=== PATIENT | female | born 1950 | race Asian ===

== ENCOUNTER 2018-07-16 10:22 | Emergency (ER) | END 2018-07-16 12:10 | disposition home or self-care (01) ==

== ENCOUNTER 2018-07-16 21:26 | Emergency (ER) | END 2018-07-17 02:16 | disposition home or self-care (01) ==

== ENCOUNTER 2018-07-30 21:13 | Emergency (ER) | END 2018-07-31 02:20 | disposition home or self-care (01) ==

== ENCOUNTER 2018-08-26 17:41 | Emergency (ER) | END 2018-08-27 02:45 | disposition home or self-care (01) ==

== ENCOUNTER 2019-03-20 05:15 | Emergency (ER) | payer OTHER ==
[~2019-03-20] VITALS: Ht 165.1 cm; Wt 82.0 kg
[~2019-03-20 05:15] MED LIST: ASPI-817 PO; ATOR20TA38 PO; GABA100C14 PO; HYDR25TA6 PO; KEN1O TOP; LOSA100T15 PO; MECL-77 PO; METF-849 PO
[2019-03-20 05:17] VITALS: Ht 165.1 cm; Wt 82.0 kg
[2019-03-20] MEDS ORDERED: ONDANSETRON 4 MG INJ IV STA (06:02)
[2019-03-20] MEDS ORDERED: NICARDipine HCL 30 MG CAPSULE PO ONE (06:30)
[2019-03-20] MEDS ORDERED: MECLIZINE 12.5 MG TAB PO ONE (06:30)
--- NOTE | 2019-03-20 08:06 | ERD ---
ER Documentation Chief Complaint Chief Complaint R889. DIZZINESS X 1 DAY. FROM HOME. HPI This is a 68-year-old female with a known history of epb-rofgomu-iabeujzel diabetes mellitus and hypertension. The patient presents to the emergency department complaining of a sudden onset of dizziness that occurred yesterday evening roughly 12 hours prior to arrival. The patient indicates that she describes the dizziness as a sensation as though the room is spinning around her. She states that she is felt nauseous but has not experienced any emesis. She complains of a mild bandlike headache. She had no fevers or shaking or chills. She denies any abdominal pain. She denies any neck pain. She indicates that in August 2018 she had similar symptoms and was diagnosed with vertigo. She was given a prescription of Antivert which improved her symptoms but she stated she ran out of this and therefore did not take any medication prior to arrival. She has no polyuria no polydipsia. No shortness of breath at rest or exertion. No recent travel. No changes in vision. No chest pain. ROS All systems reviewed and are negative except as per history of present illness. Medications Home Meds Active Scripts Meclizine Hcl* (Meclizine Hcl*) 25 Mg Tablet, 25 MG PO Q8H PRN for DIZZINESS, #20 TAB Prov:HOLLY KNOX MD 08/27/18 Reported Medications Aspirin* (Aspirin* EC) 81 Mg Tablet.dr, 81 MG PO DAILY, TAB 07/30/18 Hydrochlorothiazide* (Hydrochlorothiazide*) 25 Mg Tab, 25 MG PO DAILY, #30 TAB 07/30/18 Atorvastatin Calcium* (Atorvastatin Calcium*) 20 Mg Tablet, 20 MG PO QHS, #30 TAB 07/30/18 Losartan Potassium* (Losartan Potassium*) 100 Mg Tablet, 100 MG PO DAILY, TAB 07/30/18 Triamcinolone Acetonide* (Kenalog*) 0.1%-15GM Oint, 1 APPLIC TOP BID, #1 EA 07/30/18 Metformin* (Glucophage*) 500 Mg Tab, 500 MG PO WITH BREAKFAST DINNE, #30 TAB 07/30/18 Gabapentin* (Gabapentin*) 100 Mg Capsule, 100 MG PO TID, #90 CAP 07/30/18 Allergies Allergies: Coded Allergies: No Known Allergy (Unverified , 11/7/18) PMhx/Soc History of Surgery: No Anesthesia Reaction: No Hx Neurological Disorder: No Hx Respiratory Disorders: No Hx Cardiac Disorders: Yes (HTN, High Cholesterol) Hx Psychiatric Problems: No Hx Miscellaneous Medical Probl: No Hx Alcohol Use: No Hx Substance Use: No Hx Tobacco Use: No Smoking Status: Never smoker Physical Exam Vitals Vital Signs Date Temp Pulse Resp B/P (MAP) Pulse Ox O2 O2 Flow FiO2 Time Delivery Rate 03/20/19 67 20 172/75 98 Room Air 06:17 (107) 03/20/19 98.6 77 18 169/93 98 05:17 (118) Physical Exam Constitutional:Well-developed. Well-nourished. HEENT:Normocephalic. Atraumatic.Pupils were equal round reactive to light. Moist mucous membranes.No tonsillar exudates. Neck: No nuchal rigidity. No lymphadenopathy. No posterior cervical spine tenderness or step-offs. Respiratory: Not using accessory muscles of respiration.Lungs were clear to auscultation bilaterally. No rhonchi. No rales. No wheezing. Cardiovascular: Regular rate regular rhythm.No murmurs. No rubs were appreciated.S1, S2 normal. Distal pulses are palpable 2+ bilaterally. GI: Abdomen was soft. Nontender. Non Distended. No pulsatile abdominal masses or bruits. No rebound. No guarding. Bowel sounds were present and normal. Muscle skeletal: Full range of motion of both the upper and lower extremities bilaterally.Normal muscle tone.No assymetrical calf tenderness or swelling. Skin: No petechia, no purpura. No lesions on the palms or the soles of the feet. No maculopapular rash. NEURO: Patient was alert, awake, orientated x3.No facial droop. Gait observed and normal with no ataxia.Speech had regular rate and rhythm. No focal neurological deficits. Peripheral fatigable nystagmus. Result Diagram: 03/20/1944 03/20/19543 Results 24 hrs Laboratory Tests Test 03/20/19 05:20 03/20/19 05:44 Bedside Glucose 100 mg/dL White Blood Count 7.1 10^3/ul Red Blood Count 4.06 10^6/ul Hemoglobin 12.0 g/dl Hematocrit 36.4 % Mean Corpuscular Volume 89.7 fl Mean Corpuscular Hemoglobin 29.6 pg Mean Corpuscular Hemoglobin Concent 33.0 g/dl Red Cell Distribution Width 13.6 % Platelet Count 265 10^3/UL Mean Platelet Volume 9.4 fl Immature Granulocytes % 0.300 % Neutrophils % 49.4 % Lymphocytes % 40.1 % Monocytes % 7.5 % Eosinophils % 2.1 % Basophils % 0.6 % Nucleated Red Blood Cells % 0.0 /100WBC Immature Granulocytes # 0.020 10^3/ul Neutrophils # 3.5 10^3/ul Lymphocytes # 2.8 10^3/ul Monocytes # 0.5 10^3/ul Eosinophils # 0.2 10^3/ul Basophils # 0.0 10^3/ul Nucleated Red Blood Cells # 0.0 10^3/ul Sodium Level 143 mmol/L Potassium Level 4.1 mmol/L Chloride Level 106 mmol/L Carbon Dioxide Level 28 mmol/L Anion Gap 9 Blood Urea Nitrogen 26 mg/dl Creatinine 1.25 mg/dl Est Glomerular Filtrat Rate mL/min 43 mL/min Glucose Level 97 mg/dl Calcium Level 9.4 mg/dl Troponin I < 0.012 ng/ml Current Medications Medications Dose Sig/Fadia Start Time Status Last (Trade) Ordered Route PRN Stop Time Admin Dose Reason Admin Meclizine 25 mg ONCE ONCE 03/20/19 DC 03/20/19 HCl PO 06:30 06:12 (Antivert) 03/20/19 06:31 Ondansetron 4 mg ONCE STAT 03/20/19 DC 03/20/19 HCl (Zofran IV 06:02 06:12 Inj) 03/20/19 06:05 Nicardipine 30 mg ONCE ONCE 03/20/19 DC 03/20/19 HCl PO 06:30 06:12 (Cardene) 03/20/19 06:31 Procedures/[facility] This patient was seen and evaluated by myself. The patient presented to the emergency department complaining of dizziness. My differential diagnosis included but was not limited to hypovolemia, myocardial infarction, pulmonary embolism, hypoglycemia, hypoxia, anemia, vasovagal episode, hypothyroidism, anxiety, peripheral or central vertigo. The patient was placed on a special procedures tech, continuous pulse oximetry and IV access established by nursing staff. Patient is given a liter bolus of normal saline. She was given Zofran for nausea. She was also given Antivert. Her symptoms had significantly improved. I obtained a 12-lead EKG tracing to rule out for atypical myocardial fraction. 12 Lead EKG tracing ordered and reviewed by myself showed: Normal sinus rhythm of 73 bpm and no arrhythmia. AK interval normal. QRS duration normal. Incomplete right bundle branch block. No ST segment elevation No ST segment depression. No changes consistent with acute ischemia. The patient no severe left leg abnormalities. There is no leukocytosis. The patient's blood glucose was normal at 97. I did obtain a CT scan the patient's head given that she did have cephalgia associated with the vertigo. There is no intracerebral hemorrhage mass-effect or midline shift. The patient was hypertensive upon arrival to the emergency department. She stated however she had not taken her antihypertensive medications. There is no signs of endorgan damage to suggest hypertensive emergency or urgency. She was given Cardene with resolution of her hypertension. Given that the patient symptoms have resolved I did feel this result of peripheral vertigo with no physical exam findings to suggest central vertigo. She was given a prescription of Antivert. The patient was discharged home in fair condition. They were instructed to return to the emergency department at any time if there was any worsening of their condition. The patient stated they would follow up with their PCP in the next 24-48 hours to initiate a suitable medication regimen under the care of their PCP as well as to allow their PCP to monitor any drug reactions. The patient was discharged home with prescriptions after they gave informed consent to the new medication. They were also fully informed by myself on the adverse effects and adverse drug interactions in order to provide adequate safeguards to prevent possible adverse reactions to medications. Departure Diagnosis: Primary Impression: Vertigo Additional Impression: Accelerated hypertension Condition: Fair NASH GARCES MD March 20, 2019 08:06
[2019-03-20] MEDS ORDERED: MECL12.574 PO (08:07)
[2019-03-20 08:52] VITALS: BP 125/50; PULSE 62; RESP 20
== END 2019-03-20 08:53 | disposition home or self-care (01) ==
LOC: E/R 05:15
DX: I10 Essential (primary) hypertension (principal); E11.9 Type 2 diabetes mellitus without complications; Z79.84 Long term (current) use of oral hypoglycemic drugs; Z79.82 Long term (current) use of aspirin
CPT/HCPCS: 36415; 70450; 80048; 82962; 84484; 85025; 93005; 96374; 99285; J2405